=== PATIENT | male | born 1980 | race Two or more races ===

== ENCOUNTER 2024-05-17 20:50 | Emergency (ER) | payer BC, OTHER ==
[~2024-05-17] VITALS: Ht 172.7 cm; Wt 88.1 kg
[2024-05-17 21:02] VITALS: BP 137/86; PULSE 95; RESP 16; TEMP 98; O2SAT 97
--- NOTE | 2024-05-17 21:39 | DVH ---
EXAM: XY LUMBAR SPINE 3 VIEW INDICATION: PAIN COMPARISON: None TECHNIQUE: 3 views of the lumbar spine were obtained. Findings: There is no evidence of an acute fracture, spondylolysis, or spondylolisthesis. The vertebral body heights and disc spaces are well-maintained. No blastic or lytic lesions are appreciated. No radiopaque foreign bodies. No superficial soft tissue abnormalities. Impression: 1. No acute osseous abnormality.
--- NOTE | 2024-05-17 21:40 | ED.PDOC ---
Back pain HPI HPI Comments 43-YEAR-OLD MALE PRESENTS TO THE ED CHIEF COMPLAINT LOW BACK PAIN. 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 SHARP SHOOTING TYPE PAIN. TEN ON PAIN SCALE. HAS NOT TAKEN ANYTHING FOR THE PAIN. DENIES KNOWN INJURY DENIES NUMBNESS WEAKNESS LOSS OF BOWEL BLADDER CONTROL OR SADDLE ANESTHESIA Chief Complaint: Back Pain Time Seen by MD: 20:59 Reviewed Notes: Nurses Notes, Medications, Allergies Allergies: Coded Allergies: Tramadol (Verified Allergy, Unknown, 05/17/24) Home Meds Active Scripts Methylprednisolone (Medrol Dosepak) 4 Mg Jorge, 4 MG PO UD for 6 Days, #21 TAB UAD Prov:BREANNE CASAS [employer] 05/17/24 Tizanidine Hydrochloride (Tizanidine Hcl) 4 Mg Tab, 4 MG PO BID PRN for 3 Days, #6 TAB Prov:BREANNE CASAS [facility] 05/17/24 Information Source: Patient Mode of Arrival: Ambulatory Past Medical History PAST MEDICAL HISTORY: Denies Surgical History: Denies all surgeries Family History Family History: Reviewed,noncontributory to illness Social History Smoker: Non-Smoker Alcohol: Denies ETOH Use Drugs: Denies Drug Use Constitutional: denies: chills, diaphoresis, fatigue, fever, malaise, sweats, weakness, others EENTM: denies: blurred vision, double vision, ear bleeding, ear discharge, ear drainage, ear pain, ear ringing, eye pain, eye redness, hearing loss, mouth pain, mouth swelling, nasal discharge, nose bleeding, nose congestion, nose pain, photophobia, tearing, throat pain, throat swelling, voice changes, others Respiratory: denies: cough, hemoptysis, orthopnea, SOB at rest, shortness of breath, SOB with excertion, stridor, wheezing, others Cardiovascular: denies: chest pain, dizzy spells, diaphoresis, Dyspnea on exertion, edema, irregular heart beat, left arm pain, lightheadedness, palpitations, PND, syncope, others Gastrointestinal: denies: abdomen distended, abdominal pain, blood streaked bowels, constipated, diarrhea, dysphagia, difficulty swallowing, hematemesis, melena, nausea, poor appetite, poor fluid intake, rectal bleeding, rectal pain, vomiting, others Genitourinary: denies: burning, dysuria, flank pain, frequency, hematuria, incontinence, penile discharge, penile sore, pain, testicle pain, testicle swelling, urgency, others Neurological: denies: dizziness, fainting, headache, left sided numbness, left sided weakness, numbness, paresthesia, pre-existing deficit, right sided numbness, right sided weakness, seizure, speech problems, tingling, tremors, weakness, others Musculoskeletal: reports: back pain; denies: gout, joint pain, joint swelling, muscle pain, muscle stiffness, neck pain, others Integumetry: denies: bruises, change in color, change in hair/nails, dryness, laceration, lesions, lumps, rash, wounds, others Allergic/Immunocompromised: denies: Difficulty Healing, Frequent Infections, Hives, Itching, others Hematologic/Lymphatic: denies: anemia, blood clots, easy bleeding, easy bruising, swollen glands, others Endocrine: denies: excessive hunger, excessive sweating, excessive thirst, excessive urination, flushing, intolerance to cold, intolerance to heat, unexplained weight gain, unexplained weight loss, others Psychiatric: denies: anxiety, bipolar disorder, depression, hopeless, panic disorder, schizophrenia, sleepless, suicidal, others Physical Exam General Appearance: No Apparent Distress, Normal HEENT: Pharynx Normal Neck: Full Range of Motion, Non-Tender Respiratory: Lungs Clear, No Respiratory Distress, Normal Breath Sounds Cardiovascular: No Edema, No JVD, No Murmur, No Gallop, Normal Peripheral Pulses, Regular Rate/Rhythm Breast Exam: Deferred Gastrointestinal: No Organomegaly, Non Tender, No Pulsatile Mass, Normal Bowel Sounds, Soft Genitalia: Deferred Pelvic: Deferred Rectal: Deferred Extremities: Normal capillary refill, Normal inspection, Normal range of motion, Non-tender, No pedal edema Musculoskeletal : Location: Left Extremity Location: Back (MODERATE TENDERNESS ON PALPATION L1 THROUGH L5 PARASPINAL MUSCLES LEFT SIDE. L1 THROUGH L5 SPINE WITHOUT TENDERNESS, CREPITUS, OR STEP-OFFS NO NOTED ABRASIONS LESIONS LACERATION OR OPEN WOUNDS. 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 Was a procedure done?: No Back Pain Differential Dx Differential Diagnosis: Fracture, Musculoskeletal Pain X-Ray, Labs, Meds, VS Vital Signs Date Time Temp Pulse Resp B/P (MAP) Pulse Ox O2 Delivery O2 Flow Rate FiO2 05/17/24 21:02 98.0 95 16 137/86 (103) 97 98.0 05/17/24 21:02 Room Air 05/17/24 21:02 98.0 95 16 137/86 (103) 97 Current Medications Medications (Trade) Dose Ordered Sig/Avery Route Start Time Stop Time Status Last Admin Ketorolac Tromethamine (Toradol Injection) 60 mg ONCE ONCE IM 05/17/24 21:45 05/17/24 21:46 DC 05/17/24 21:56 Dexamethasone Sodium Phosphate (Decadron Injection) 10 mg ONCE ONCE IM 05/17/24 21:45 05/17/24 21:46 DC 05/17/24 21:56 Oxycodone/ Acetaminophen (Percocet 5/ 325MG Tablet) 1 tab ONCE ONCE PO 05/17/24 21:45 05/17/24 21:46 DC 05/17/24 21:47 X-Ray, Labs, Meds, VS Comment LUMBAR SPINE X-RAY NEGATIVE FOR ACUTE FRACTURES OR LESIONS. TORADOL 60 MG IM, DECADRON 10 MG IM AND A PERCOCET 5 MG P.O. HE REPORTS PAIN 2/10 IMPROVEMENT REQUESTING DISCHARGE AT THIS TIME. MUSCLE RELAXER AND MEDROL DOSEPAK. ADVISED TO REST ALTERNATE BETWEEN ICE AND HEAT FOLLOW UP WITH YOUR PCP CONSIDER FURTHER IMAGING SUCH MRI IF SYMPTOMS PERSIST. ER RETURN PRECAUTIONS GIVEN PATIENT AGREES WITH DISCHARGE PLAN OF CARE. Time of 1ST Reevaluation: 22:31 Reevaluation 1ST: Improved Patient Education/Counseling: Diagnosis, Treatment, Prognosis, Need For Follow Up Family Education/Counseling: Diagnosis, Treatment, Prognosis, Need For Follow Up Departure 1 Departure Time of Disposition: 22:30 Impression: Primary Impression: Lumbar sprain Qualified Codes: S33.5XXA - Sprain of ligaments of lumbar spine, initial encounter Additional Impression: Musculoskeletal pain Disposition: HOME / SELF CARE / HOMELESS Condition: Stable e-Prescriptions Methylprednisolone (Medrol Dosepak) 4 Mg Jorge 4 MG PO UD for 6 Days, #21 TAB UAD Prov: BREANNE CASAS 05/17/24 Tizanidine Hydrochloride (Tizanidine Hcl) 4 Mg Tab 4 MG PO BID PRN for 3 Days, #6 TAB Prov: BREANNE CASAS 05/17/24 Discharged With: Spouse Critical Care Note Critical Care Time?: No Stability Stability form required: No BREANNE CASAS May 17, 2024 21:40
[2024-05-17] MEDS: OXYCODONE W/ ACETAMINOPHEN 5/325MG TABLET PO ONE (21:47)
[2024-05-17] MEDS: KETOROLAC TROMETH 60MG/2ML VIAL IM ONE (21:56)
[2024-05-17] MEDS: DexAMETHasone SOD PHOS 10MG/1ML VIAL INJ IM ONE (21:56)
[2024-05-17] MEDS ORDERED: TIZA-142 PO (22:33)
[2024-05-17] MEDS ORDERED: METH4PAK PO (22:33)
== END 2024-05-17 22:33 | disposition home or self-care (01) ==
LOC: ER 20:50
DX: S33.5XXA Sprain of ligaments of lumbar spine, initial encounter (principal); Z79.899 Other long term (current) drug therapy; Z88.5 Allergy status to narcotic agent; X58.XXXA Exposure to other specified factors, initial encounter; Y93.89 Activity, other specified; Y92.89 Other specified places as the place of occurrence of the external cause; Y99.8 Other external cause status
CPT/HCPCS: 72100; 96372; 99284; J1100; J1885